=== PATIENT | female | born 1975 | race Two or more races ===

== ENCOUNTER 2019-01-29 00:04 | Emergency (ER) | payer MEDICAID ==
[~2019-01-29] VITALS: Ht 165.1 cm; Wt 81.6 kg
--- NOTE | 2019-01-29 00:04 | NUR ---
ED Nurse Note: GIDEON RA [id number] FROM HOME C/O ABDOMINAL PAIN 04/19. AO4. FACIAL GRIMACING, GRASPING SITE. IV ACCESS ESTABLISHED. BLOOD COLLECTED; SENT DOWN TO LAB. LEFT MASTECTOMY NOTED.
[2019-01-29] MEDS ORDERED: HYDROmorphone 1mg/ml Carpuject IVP ONE ×2 (00:15→01:15)
--- NOTE | 2019-01-29 00:15 | Emergency Room Report ---
History of Present Illness General Chief Complaint: Abdominal Pain Source: Patient Present Illness HPI This is a 43-year-old female with a history of metastatic breast cancer. She has multiple abdominal surgery. She is taking Louisa for her pain. She is out for the last few days. She complained abdominal pain has been ongoing for a week but worse tonight. She has nausea and vomiting. Denies any constipation. Denies any diarrhea. Pain is 10 out of 10. Diffuse in nature. No fever or chills. Unable keep anything down. Allergies: Coded Allergies: No Known Allergies (Unverified , 01/29/19) Patient History Past Medical History: see triage record, old chart reviewed Past Surgical History: other Pertinent Family History: none Social History: Denies: smoking Now: No Immunizations: other Reviewed Nursing Documentation: PMH: Agreed; PSxH: Agreed Nursing Documentation-PMH Past Medical History: No History, Except For Hx Cancer: Yes Review of Systems Eye: Denies: eye pain, blurred vision ENT: Denies: ear pain, nose congestion, throat swelling Respiratory: Denies: cough, shortness of breath Cardiovascular: Denies: chest pain, palpitations Gastrointestinal: Reports: abdominal pain, nausea, vomiting; Denies: diarrhea Musculoskeletal: Denies: back pain, joint pain Skin: Denies: rash Neurological: Denies: headache, numbness Endocrine: Denies: increased thirst, increased urine Hematologic/Lymphatic: Denies: easy bruising All Other Systems: negative except mentioned in HPI Physical Exam Vital Signs Date Time Temp Pulse Resp B/P (MAP) Pulse Ox O2 Delivery O2 Flow Rate FiO2 01/29/19 00:00 98.4 100 21 152/90 (110) 100 Room Air Vitals with high blood pressure Sp02 EP Interpretation: reviewed, normal General Appearance: well appearing, no apparent distress, alert Head: normocephalic, atraumatic Eyes: bilateral eye PERRL, bilateral eye EOMI ENT: hearing grossly normal, normal pharynx Neck: full range of motion, supple, no meningismus Respiratory: chest non-tender, lungs clear, normal breath sounds Cardiovascular #1: regular rate, rhythm, no murmur Gastrointestinal: no mass, no organomegaly, no bruit, non-distended, tenderness - diffuse, decreased bowel sounds Musculoskeletal: back normal, gait/station normal, normal range of motion Psychiatric: mood/affect normal Medical Decision Making Diagnostic Impression: Primary Impression: Abdominal pain Qualified Codes: R10.84 - Generalized abdominal pain ER Course Patient presents with exacerbation of chronic abdominal pain. She says she had this pain for about 6 months now. Her doctor recommend having a hysterectomy. I suspect this secondary to fibroid uterus causing her pain. No evidence of an acute abdomen. No evidence of any obstruction. No evidence of abscess. Pain is better controlled. Will discharge home. CT/MRI/US Diagnostic Results CT/MRI/US Diagnostic Results : Imaging Test Ordered: CT abdomen pelvis Impression Read by radiologist. No evidence of acute pink otitis or appendicitis. No renal stone. Postoperative changes. Right breast implant. Last Vital Signs Date Time Temp Pulse Resp B/P (MAP) Pulse Ox O2 Delivery O2 Flow Rate FiO2 01/29/19 00:00 98.4 100 21 152/90 (110) 100 Room Air Status: improved Disposition: HOME, SELF-CARE Condition: Stable Scripts Ibuprofen* (MOTRIN*) 600 Mg Tablet 600 MG ORAL THREE TIMES A DAY, #30 TAB 0 Refills Prov: Bhupinder Vasquez MD 01/29/19 Hydrocodone/Acetaminophen 5-325* (HYDROCODONE/ACETAMINOPHEN 5-325*) 1 Each Tablet 1 TAB ORAL Q6H PRN for For Pain, #20 TAB 0 Refills Prov: Bhupinder Vasquez MD 01/29/19 Patient Instructions: Abdominal Pain, Adult Additional Instructions: Follow-up with your doctor within a week. Return if symptoms worsen. Bhupinder Vasquez MD Jan 29, 2019 00:15
[2019-01-29 00:19] LABS: BASOPHILS % (AUTO) 0.7 % (0.0-2.0); EOSINOPHILS % (AUTO) 1.9 % (0.0-3.0); HEMATOCRIT 34.1 % (37.0-47.0); HEMOGLOBIN 10.7 G/DL (12.0-16.0); LYMPHOCYTES % (AUTO) 37.4 % (20.0-45.0); MEAN CORPUSCULAR VOLUME 77 FL (80-99); MONOCYTES % (AUTO) 7.2 % (1.0-10.0); NEUTROPHILS % (AUTO) 52.7 % (45.0-75.0); PLATELET COUNT 464 K/UL (150-450); WHITE BLOOD COUNT 9.1 K/UL (4.8-10.8)
[2019-01-29 00:33] VITALS: BP 152/90
[2019-01-29 00:33] LABS: ANION GAP 9 mmol/L (5-15); BLOOD UREA NITROGEN 11 mg/dL (7-18); CALCIUM 9.2 MG/DL (8.5-10.1); CARBON DIOXIDE 25 MMOL/L (21-32); CHLORIDE 102 MMOL/L (98-107); CREATININE 0.8 MG/DL (0.55-1.30); POTASSIUM 3.5 MMOL/L (3.5-5.1); SODIUM 136 MMOL/L (136-145)
--- NOTE | 2019-01-29 00:36 | NUR ---
ED Nurse Note: pt back from imaging
[2019-01-29 00:37] LABS: ALANINE AMINOTRANSFERASE 25 U/L (12-78); ALBUMIN 4.2 G/DL (3.4-5.0); ALBUMIN/GLOBULIN RATIO 1.2 (1.0-2.7); ALKALINE PHOSPHATASE 134 U/L (46-116); ASPARTATE AMINO TRANSFERASE 22 U/L (15-37); BILIRUBIN,TOTAL 0.3 MG/DL (0.2-1.0)
--- NOTE | 2019-01-29 00:55 | Diagnostic Imaging Report ---
Indication: Abdominal pain for 2 days Technique: Spiral acquisitions obtained through the abdomen and pelvis. No oral contrast utilized, per emergency room physician request No IV contrast utilized, per referring physician request.. Multiplanar reconstructions were generated. Total dose length product 1073.82 mGycm. CTDIvol(s) 19.51 mGy. Dose reduction achieved using automated exposure control Comparison: None Findings: The appendix is normal. There are a few colonic diverticula. No evidence of diverticulitis. No small bowel distention. No free or loculated intraperitoneal gas or fluid is evident. Lack of IV contrast limits assessment of solid organs. The gallbladder is surgically absent. The liver, bile ducts, pancreas, spleen, right adrenal are unremarkable. There is hypertrophy of much of the left adrenal without definite discrete mass. This demonstrates a negative attenuation coefficient, consistent with adenomatous changes. The right kidney demonstrates a 5 mm diameter lower pole calyceal calculus, and a punctate lower pole calyceal calculus. The left kidney is unremarkable. No ureteral calculi, hydronephrosis, or hydroureter. No pelvic mass or adenopathy. There are some prominent lymph nodes in the right upper quadrant mesenteric fat. There is a pelvic surgical scar noted there is some scarring at the anterior uterine serosal surface. Some surgical clips or letty are seen at the right lower quadrant peritoneal surface anteriorly. There is a right breast implant in place. The included lung bases demonstrate some dependent atelectatic changes. The bones are unremarkable. Impression: No acute process Colonic diverticulosis Nonobstructive right lower pole intrarenal calculi Evidence of prior pelvic surgery, likely section Right breast implant Evidence of prior cholecystectomy Evidence of adenomatous hypertrophy of the left adrenal Nonspecific right upper quadrant prominent mesenteric lymph nodes This agrees with the preliminary interpretation provided overnight by [facility] service. The CT scanner at [facility] is accredited by the [employer] and the scans are performed using protocols designed to limit radiation exposure to as low as reasonably achievable to attain images of sufficient resolution adequate for diagnostic evaluation.
[2019-01-29] MEDS ORDERED: IBUPROFEN600 MG ORAL (01:17)
[2019-01-29] MEDS ORDERED: HYDROCODON-ACE1 EA15 ORAL (01:17)
[2019-01-29 01:24] VITALS: BP 148/87
--- NOTE | 2019-01-29 01:24 | NUR ---
ER DISCHARGE NOTE: Patient is cleared to be discharged per ERMD, pt is aox4, on room air, with stable vital signs. pt was given dc and prescription instructions, pt was able to verbalize understanding, pt id band and iv site removed without complications. pt is able to ambulate to taxi with steady gait. pt took all belongings.
== END 2019-01-29 01:25 | disposition home or self-care (01) ==
LOC: EDBD 00:04 → EMR 00:40
DX: R10.84 Generalized abdominal pain (principal); Z85.3 Personal history of malignant neoplasm of breast
CPT/HCPCS: 36415; 74176; 80053; 83690; 85025; 96361; 96372; 96374; 96375; 96376; 99284; J1170; J2405

== ENCOUNTER 2019-04-13 23:44 | Emergency (ER) | payer MEDICAID ==
[~2019-04-13] VITALS: Ht 162.6 cm; Wt 83.9 kg
[~2019-04-13 23:44] MED LIST: HYDROCODON-ACE1 EA15 ORAL; IBUPROFEN600 MG ORAL
--- NOTE | 2019-04-13 23:45 | NUR ---
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 pt also reports hx darshana breast CA and also had gallbladder removed. pt AA&ox4, gcs=15, currently crying and restless from pain, sinus tach on the monitor. will cont montior. ermd aware of pt's condition, pt denies vaginal bleeding at this time.
[2019-04-13] MEDS ORDERED: DiphenhydrAMINE 50mg/ml Inj ONE (23:53)
--- NOTE | 2019-04-13 23:56 | Emergency Room Report ---
History of Present Illness General Chief Complaint: Abdominal Pain Source: Patient Present Illness HPI Disclaimer: Please note that this report is being documented using [employer] technology. This can lead to erroneous entry secondary to incorrect interpretation by the dictating instrument. HPI: 44-year-old female with a history of breast cancer mastectomy and reconstruction using an abdominal flap, as well as cholecystectomy presents for evaluation of abdominal pain. Patient states she has had chronic abdominal pain since her surgeries earlier in the summer and is scheduled for hysterectomy in 10 days secondary to masses which I believe she is trying to describe fibroids. She did report some pelvic bleeding in the past but not currently. She has been taking oxycodone at home and took 2 tablets but had no significant improvement in her pain. She has been vomiting throughout the day but continues to move her bowels and pass gas. She denies any recent fevers, chills, chest pain or shortness of breath. This is her typical lower pelvic pain that she has been dealing with for several months however more intense. Denies dysuria or hematuria or flank pain. PMH: Breast cancer PSH: Abdominal flap for breast reconstruction, breast reconstruction, cholecystectomy Allergies: Denies tobacco, drug or alcohol abuse Social Hx: Denies Allergies: Coded Allergies: No Known Allergies (Unverified , 01/29/19) Patient History Last Menstrual Period: 03/22/19 Now: No : 1 Para: 1 Nursing Documentation-PM Past Medical History: No History, Except For Hx Cancer: Yes - COLON Hx Gastrointestinal Problems: Yes - COLON CANCER Review of Systems All Other Systems: negative except mentioned in HPI Physical Exam Vital Signs Date Time Temp Pulse Resp B/P (MAP) Pulse Ox O2 Delivery O2 Flow Rate FiO2 04/13/19 23:34 98.6 124 18 96 Room Air General: Awake and alert, tearful, crying and writhing in bed HEENT: NC/AT. EOMI. moist mucous membranes Cardiovascular: Tachycardic. S1 and S2 normal. No murmur appreciated Resp: Normal work of breathing. No cough, wheezing or crackles appreciated Abdomen: Abdomen is soft, obese, nondistended. Nontender in the upper quadrants and periumbilical region. No significant tenderness in the right lower left lower quadrant but there is severe tenderness in the periumbilical region. I cannot palpate any masses. Skin: Intact. No abrasions, laceration or rash over the exposed skin MSK: Normal tone and bulk. Moving all extremities. No obvious deformity. Neuro: Awake and alert. Mentating appropriately. Tearful and emotional Medical Decision Making Diagnostic Impression: Primary Impression: Abdominal pain ER Course 44-year-old female with history of breast cancer and cholecystectomy scheduled for hysterectomy for suspected uterine fibroids in approximately 10 days presents for evaluation of severe abdominal pain that cannot be controlled at home. She states that this is her typical abdominal pain no more severe than usual. She continues to pass gas and move her bowels which she did earlier today but has been vomiting. Had no significant improvement with her oxycodone at home. Patient appears to be in severe discomfort. We will start IV fluids and pain medication, check labs and if no significant improvement will order a CT scan of the abdomen. Laboratory Tests Test 04/13/19 23:45 White Blood Count 10.7 K/UL (4.8-10.8) Red Blood Count 4.58 M/UL (4.20-5.40) Hemoglobin 11.2 G/DL (12.0-16.0) L Hematocrit 35.7 % (37.0-47.0) L Mean Corpuscular Volume 78 FL (80-99) L Mean Corpuscular Hemoglobin 24.4 PG (27.0-31.0) L Mean Corpuscular Hemoglobin Concent 31.4 G/DL (32.0-36.0) L Red Cell Distribution Width 17.0 % (11.6-14.8) H Platelet Count 432 K/UL (150-450) Mean Platelet Volume 5.1 FL (6.5-10.1) L Neutrophils (%) (Auto) 58.9 % (45.0-75.0) Lymphocytes (%) (Auto) 31.9 % (20.0-45.0) Monocytes (%) (Auto) 6.5 % (1.0-10.0) Eosinophils (%) (Auto) 2.1 % (0.0-3.0) Basophils (%) (Auto) 0.7 % (0.0-2.0) Sodium Level 138 MMOL/L (136-145) Potassium Level 3.8 MMOL/L (3.5-5.1) Chloride Level 105 MMOL/L (98-107) Carbon Dioxide Level 22 MMOL/L (21-32) Anion Gap 11 mmol/L (5-15) Blood Urea Nitrogen 15 mg/dL (7-18) Creatinine 0.9 MG/DL (0.55-1.30) Estimate Glomerular Filtration Rate > 60 mL/min (>60) Glucose Level 132 MG/DL (74-106) H Calcium Level 9.2 MG/DL (8.5-10.1) Total Bilirubin 0.4 MG/DL (0.2-1.0) Aspartate Amino Transferase (AST) 25 U/L (15-37) Alanine Aminotransferase (ALT) 29 U/L (12-78) Alkaline Phosphatase 129 U/L (46-116) H Total Protein 8.4 G/DL (6.4-8.2) H Albumin 4.0 G/DL (3.4-5.0) Globulin 4.4 g/dL Albumin/Globulin Ratio 0.9 (1.0-2.7) L Lipase 182 U/L (73-393) Reevaluation Time: 02:03 Last Vital Signs Date Time Temp Pulse Resp B/P (MAP) Pulse Ox O2 Delivery O2 Flow Rate FiO2 04/13/19 23:34 98.6 124 18 96 Room Air Status: improved Reevaluation Impression Patient is sleeping comfortably on reevaluation. Labs have returned largely within normal limits. Little concern for obstruction at this time as the patient had a normal bowel movement this morning and continues to pass gas. She states her pain is now gone and is feeling much better. No nausea, able to ambulate, wants to go home. Do not believe she requires imaging at this time. Likely, this is pain from her fibroids that she states she had bleeding over the past few days but none today. She is scheduled for hysterectomy next week. I told her to follow-up with her surgeon as well as her PMD and to return to the emergency department any return of these abdominal pain. She understands and agrees with this treatment plan and was discharged home. Disposition: HOME, SELF-CARE Condition: Improved Maxi Mart MD Apr 13, 2019 23:56
[2019-04-14] LABS: BASOPHILS % (AUTO) 0.7 % (0.0-2.0); EOSINOPHILS % (AUTO) 2.1 % (0.0-3.0); HEMATOCRIT 35.7 % (37.0-47.0); HEMOGLOBIN 11.2 G/DL (12.0-16.0); LYMPHOCYTES % (AUTO) 31.9 % (20.0-45.0); MEAN CORPUSCULAR VOLUME 78 FL (80-99); MONOCYTES % (AUTO) 6.5 % (1.0-10.0); NEUTROPHILS % (AUTO) 58.9 % (45.0-75.0); PLATELET COUNT 432 K/UL (150-450); RED BLOOD COUNT 4.58 M/UL (4.20-5.40); WHITE BLOOD COUNT 10.7 K/UL (4.8-10.8)
[2019-04-14] MEDS ORDERED: DiphenhydrAMINE 50mg/ml Inj IVP ONE
[2019-04-14 00:10] VITALS: BP 162/105
[2019-04-14 00:13] LABS: ANION GAP 11 mmol/L (5-15); BLOOD UREA NITROGEN 15 mg/dL (7-18); CALCIUM 9.2 MG/DL (8.5-10.1); CARBON DIOXIDE 22 MMOL/L (21-32); CHLORIDE 105 MMOL/L (98-107); CREATININE 0.9 MG/DL (0.55-1.30); POTASSIUM 3.8 MMOL/L (3.5-5.1); SODIUM 138 MMOL/L (136-145)
[2019-04-14 00:17] LABS: ALANINE AMINOTRANSFERASE 29 U/L (12-78); ALBUMIN/GLOBULIN RATIO 0.9 (1.0-2.7); ALKALINE PHOSPHATASE 129 U/L (46-116); ASPARTATE AMINO TRANSFERASE 25 U/L (15-37); BILIRUBIN,TOTAL 0.4 MG/DL (0.2-1.0)
--- NOTE | 2019-04-14 00:35 | NUR ---
ED Nurse Note: pt continue to report pain on abd area, ermd notified, will follow up with order.
[2019-04-14] MEDS ORDERED: HYDROmorphone 1mg/ml Carpuject IVP ONE (00:45)
[2019-04-14 01:00] VITALS: BP 145/98
[2019-04-14 02:32] VITALS: BP 125/86
--- NOTE | 2019-04-14 03:07 | NUR ---
ED Nurse Note: pt clear to be d/c per ermd, pt discharge and aftercare instruction provided, pt advised to follow up with pcp or return to ed if changes in condition, vss, ambulatory w/ steady gait, pt education done via discussion and handout, pt verbalized understanding and agrees with plan, iv d/c and id band removed. pt reports pain relief after medication.
[2019-04-14 03:08] VITALS: BP 128/76
== END 2019-04-14 03:08 | disposition home or self-care (01) ==
LOC: EDBD 23:44 → EMR 23:52
DX: R10.30 Lower abdominal pain, unspecified (principal); Z85.038 Personal history of other malignant neoplasm of large intestine; Z85.3 Personal history of malignant neoplasm of breast; Z90.49 Acquired absence of other specified parts of digestive tract; Z90.10 Acquired absence of unspecified breast and nipple
CPT/HCPCS: 36415; 80053; 83690; 85025; 96361; 96374; 96375; J1170; J1200; J2405; Z7502; 99284

== ENCOUNTER 2019-04-17 22:27 | Emergency (ER) | payer MEDICAID ==
[~2019-04-17] VITALS: Ht 157.5 cm; Wt 77.1 kg
[2019-04-17 22:40] VITALS: BP 195/122
--- NOTE | 2019-04-17 22:40 | NUR ---
ED Nurse Note: Patient walked into ED c/o 04/19 abdominal pain that has been an on going issue for the past 4 months, patient does have a history of breast cancer, states that she will have a procedure done within the week, has taken hydrocodone for pain however has not been working. reports no nausea of vomiting. patient is alert and oriented x4. Dr. Vasquez notified of patients blood pressure. will continue to monitor
[2019-04-17] MEDS ORDERED: TRAMADOL HCL50 MG ORAL (22:48)
[2019-04-17] MEDS ORDERED: PERCOCET 5-3251 EACH ORAL (22:59)
--- NOTE | 2019-04-17 23:00 | Emergency Room Report ---
History of Present Illness General Chief Complaint: Female Urogenital Problems Source: Patient, Medical Record Present Illness HPI 44-year-old female with a history of metastatic breast cancer status post mastectomy with abdominal flap surgery. She also has a history of pelvic pain. She is scheduled for total hysterectomy next week secondary to HPV infection and possible cancer. She presents with chief complaint of pelvic pain. This is a chronic issue for her. She does take hydrocodone is not helping. No nausea no vomiting. Pain is suprapubic and 10 out of 10. Similar to previous episodes. She was here 4 days ago for the same. No dysuria frequency. No hematuria. No radiation of the pain. Allergies: Coded Allergies: No Known Allergies (Unverified , 01/29/19) Patient History Past Medical History: see triage record, old chart reviewed Past Surgical History: other Pertinent Family History: none Social History: Denies: smoking Last Menstrual Period: unk Now: No Immunizations: other Reviewed Nursing Documentation: PMH: Agreed; PSxH: Agreed Nursing Documentation-PMH Hx Cancer: Yes - COLON, breast cancer, HPV Hx Gastrointestinal Problems: Yes - COLON CANCER Review of Systems Eye: Denies: eye pain, blurred vision ENT: Denies: ear pain, nose congestion, throat swelling Respiratory: Denies: cough, shortness of breath Cardiovascular: Denies: chest pain, palpitations Gastrointestinal: Reports: abdominal pain; Denies: diarrhea, nausea, vomiting Musculoskeletal: Denies: back pain, joint pain Skin: Denies: rash Neurological: Denies: headache, numbness Endocrine: Denies: increased thirst, increased urine Hematologic/Lymphatic: Denies: easy bruising All Other Systems: negative except mentioned in HPI Physical Exam Vital Signs Date Time Temp Pulse Resp B/P (MAP) Pulse Ox O2 Delivery O2 Flow Rate FiO2 04/17/19 22:34 97.7 100 20 195/122 (146) 96 Room Air Vitals with high blood pressure Sp02 EP Interpretation: reviewed, normal General Appearance: well appearing, no apparent distress, alert, other - Crying Head: normocephalic, atraumatic Eyes: bilateral eye PERRL, bilateral eye EOMI ENT: hearing grossly normal, normal pharynx Neck: full range of motion, supple, no meningismus Respiratory: chest non-tender, lungs clear, normal breath sounds Cardiovascular #1: regular rate, rhythm, no murmur Gastrointestinal: normal bowel sounds, non tender, no mass, no organomegaly, no bruit, non-distended Musculoskeletal: back normal, gait/station normal, normal range of motion Psychiatric: mood/affect normal Medical Decision Making Diagnostic Impression: Primary Impression: Pelvic pain Additional Impression: Abdominal pain Qualified Codes: R10.30 - Lower abdominal pain, unspecified ER Course Patient presents with abdominal pain/pelvic pain. This is a chronic issue. She had recent blood work done few days ago was unremarkable. She had CT scan and ultrasound done at outside hospital already. I see no need to repeat. Better after pain control. Blood pressure improved. Will discharge home. Last Vital Signs Date Time Temp Pulse Resp B/P (MAP) Pulse Ox O2 Delivery O2 Flow Rate FiO2 04/17/19 22:34 97.7 100 20 195/122 (146) 96 Room Air Status: improved Disposition: HOME, SELF-CARE Condition: Stable Scripts Oxycodone/Acetaminophen 5-325* (PERCOCET 5-325 MG TABLET*) 1 Each Tablet 1 TAB ORAL Q6H PRN for For Pain, #20 TAB Prov: Bhupinder Vasquez MD 04/17/19 Additional Instructions: Follow-up with your doctor scheduled next week. Return if symptoms worsen. Bhupinder Vasquez MD Apr 17, 2019 23:00
[2019-04-17 23:30] VITALS: BP 172/88
--- NOTE | 2019-04-17 23:30 | NUR ---
ER DISCHARGE NOTE: Patient is cleared to be discharged per ERMD, pt is aox4, on room air, with stable vital signs. pt was given dc and prescription instructions, pt was able to verbalize understanding, pt id band removed without complications. pt is able to ambulate with steady gait. pt took all belongings.
== END 2019-04-17 23:30 | disposition home or self-care (01) ==
LOC: EMR 22:54
DX: R10.2 Pelvic and perineal pain (principal); Z85.3 Personal history of malignant neoplasm of breast; Z85.038 Personal history of other malignant neoplasm of large intestine; G89.29 Other chronic pain; Z90.10 Acquired absence of unspecified breast and nipple
CPT/HCPCS: 96372; J1170; Z7502; 99283